=== PATIENT | female | born 1990 | race Two or more races ===

== ENCOUNTER 2017-08-11 01:06 | Emergency (ER) | payer OTHER ==
[~2017-08-11] VITALS: Ht 165.1 cm; Wt 102.1 kg
[2017-08-11] MEDS ORDERED: CARAFATE1 G1 ORAL (01:21)
[2017-08-11 01:25] VITALS: BP 130/92
[2017-08-11] MEDS ORDERED: Lidocaine 2% Visc 15ml soln ORAL ONE (01:45)
[2017-08-11] MEDS ORDERED: Mylanta II UD 30ml ORAL ONE (01:45)
[2017-08-11] MEDS ORDERED: CARAFATE1 GM/10 M1 ORAL (01:53)
--- NOTE | 2017-08-11 01:53 | Emergency Room Report ---
History of Present Illness General Chief Complaint: Abdominal Pain Source: Patient Present Illness HPI Is a 27-year-old female with a history of gastritis. She has multiple workup in the past. Ultrasound negative for gallbladder disease. Endoscopy showed that she has gastritis. Negative for H. pylori. She only taking Carafate for the pain. She said that helped. Also GI cocktail helped. She presents with epigastric pain. She forgot her medication in [place]. Onset today. Had vomiting earlier. No radiation. We'll for pain. Allergies: Coded Allergies: METHOCARBAMOL (Verified Adverse Reaction, Unknown, 08/11/17) increased heart rate Patient History Past Medical History: see triage record, old chart reviewed Past Surgical History: none Pertinent Family History: none Social History: Denies: smoking Last Menstrual Period: jul 25 Now: No Immunizations: other Reviewed Nursing Documentation: PMH: Agreed, PSxH: Agreed Nursing Documentation-PMH Hx Gastrointestinal Problems: Yes - gastritis Review of Systems Eye: Denies: eye pain, blurred vision ENT: Denies: ear pain, nose congestion, throat swelling Respiratory: Denies: cough, shortness of breath Cardiovascular: Denies: chest pain, palpitations Gastrointestinal: Reports: abdominal pain, Denies: diarrhea, nausea, vomiting Musculoskeletal: Denies: back pain, joint pain Skin: Denies: rash Neurological: Denies: headache, numbness Endocrine: Denies: increased thirst, increased urine Hematologic/Lymphatic: Denies: easy bruising All Other Systems: negative except mentioned in HPI Physical Exam Vital Signs Date Time Temp Pulse Resp B/P (MAP) Pulse Ox O2 Delivery O2 Flow Rate FiO2 08/11/17 01:15 98.2 86 16 130/92 98 Room Air vitals normal Sp02 EP Interpretation: reviewed, normal General Appearance: well appearing, no apparent distress, alert Head: normocephalic, atraumatic Eyes: bilateral eye PERRL, bilateral eye EOMI ENT: hearing grossly normal, normal pharynx Neck: full range of motion, supple, no meningismus Respiratory: chest non-tender, lungs clear, normal breath sounds Cardiovascular #1: regular rate, rhythm, no murmur Gastrointestinal: normal bowel sounds, no mass, no organomegaly, no bruit, non- distended, tenderness - Epigastric Musculoskeletal: back normal, gait/station normal, normal range of motion Psychiatric: mood/affect normal Skin: warm/dry Medical Decision Making Diagnostic Impression: Primary Impression: Gastritis Qualified Codes: K29.00 - Acute gastritis without bleeding ER Course She will gastritis. Said this is typical for her. Does not want any blood work or diagnostic study. Better after GI cocktail. We'll discharge him. Last Vital Signs Date Time Temp Pulse Resp B/P (MAP) Pulse Ox O2 Delivery O2 Flow Rate FiO2 08/11/17 01:25 98.2 72 16 130/92 98 Room Air Status: improved Disposition: HOME, SELF-CARE Condition: Stable Scripts Sucralfate (CARAFATE) 1 Gm/10 Ml Oral.susp 1 GM ORAL FOUR TIMES A DAY, #210 ML Prov: MUMTAZ MAYFIELD M.D. 08/11/17 Additional Instructions: Followup with your DrEverardo in 7 days. Return if symptom worsen. MUMTAZ MAYFIELD M.D. Aug 11, 2017 01:53
[2017-08-11 01:56] VITALS: BP 130/92
== END 2017-08-11 01:56 | disposition home or self-care (01) ==
LOC: EMR 01:42
DX: K29.70 Gastritis, unspecified, without bleeding (principal); R10.9 Unspecified abdominal pain
CPT/HCPCS: 99284

== ENCOUNTER 2018-07-26 00:04 | Emergency (ER) | payer SELFPAY ==
[~2018-07-26] VITALS: Ht 165.1 cm; Wt 108.9 kg
[~2018-07-26 00:04] MED LIST: CARAFATE1 G1 ORAL; CARAFATE1 GM/10 M1 ORAL
[2018-07-26] MEDS ORDERED: Morphine Sulfate 10mg/ml Inj IVP ONE (00:30)
--- NOTE | 2018-07-26 00:48 | Emergency Room Report ---
History of Present Illness General Chief Complaint: Abdominal Pain Source: Patient Present Illness HPI Is a 28-year-old female with a history of gallstones, diagnosed earlier this year in [place]. She presents with chief complaint of right upper quadrant pain is been on and off for the last week. Pain radiates to her back. Has nausea and vomiting. No fever chills. Vomiting with specks of blood now. She went to [facility] and had blood work done but waited for over 2 hours shows she left. Denies any other complaint. Similar symptom in the past. Worse with food. Allergies: Coded Allergies: METHOCARBAMOL (Verified Adverse Reaction, Unknown, 08/11/17) increased heart rate Patient History Past Medical History: see triage record, old chart reviewed Past Surgical History: other Pertinent Family History: none Social History: Denies: smoking Last Menstrual Period: 06/2018 Now: No Immunizations: other Reviewed Nursing Documentation: PMH: Agreed; PSxH: Agreed Nursing Documentation-PMH Hx Gastrointestinal Problems: Yes - GALLSTONE,GASTRITIS,HERNIATED DISC Review of Systems Eye: Denies: eye pain, blurred vision ENT: Denies: ear pain, nose congestion, throat swelling Respiratory: Denies: cough, shortness of breath Cardiovascular: Denies: chest pain, palpitations Gastrointestinal: Reports: abdominal pain, nausea, vomiting; Denies: diarrhea Musculoskeletal: Denies: back pain, joint pain Skin: Denies: rash Neurological: Denies: headache, numbness Endocrine: Denies: increased thirst, increased urine Hematologic/Lymphatic: Denies: easy bruising All Other Systems: negative except mentioned in HPI Physical Exam Vital Signs Date Time Temp Pulse Resp B/P (MAP) Pulse Ox O2 Delivery O2 Flow Rate FiO2 07/26/18 00:10 98.2 84 16 110/72 99 Room Air 98.2 vitals normal Sp02 EP Interpretation: reviewed, normal General Appearance: well appearing, no apparent distress, alert, obese Head: normocephalic, atraumatic Eyes: bilateral eye PERRL, bilateral eye EOMI ENT: hearing grossly normal, normal pharynx Neck: full range of motion, supple, no meningismus Respiratory: chest non-tender, lungs clear, normal breath sounds Cardiovascular #1: regular rate, rhythm, no murmur Gastrointestinal: normal bowel sounds, no mass, no organomegaly, no bruit, non- distended, tenderness - right upper quadrant Musculoskeletal: back normal, gait/station normal, normal range of motion Psychiatric: mood/affect normal Skin: warm/dry Medical Decision Making Diagnostic Impression: Primary Impression: Cholelithiasis Qualified Codes: K80.20 - Calculus of gallbladder without cholecystitis without obstruction Additional Impression: Biliary colic ER Course Patient with biliary colic. No evidence of any obstruction or cholecystitis. No evidence of pancreatitis. Pain is well-controlled now. We'll discharge home. Lab Results Impression labs normal Last Vital Signs Date Time Temp Pulse Resp B/P (MAP) Pulse Ox O2 Delivery O2 Flow Rate FiO2 07/26/18 00:10 98.2 84 16 110/72 99 Room Air 98.2 Status: improved Disposition: HOME, SELF-CARE Condition: Stable Scripts Hydrocodone/Acetaminophen 5-325* (HYDROCODONE/ACETAMINOPHEN 5-325*) 1 Each Tablet 1 TAB ORAL Q6H PRN for For Pain, #20 TAB 0 Refills Prov: Russell Ghosh MD 07/26/18 Additional Instructions: Follow-up with your doctor in 7 days. You may need a referral to see a surgeon for possible gallbladder surgery. Return if symptom worsen. Russell Ghosh MD Jul 26, 2018 00:48
[2018-07-26 01:00] LABS: EOSINOPHILS % (AUTO) 1.5 % (0.0-3.0); HEMATOCRIT 41.7 % (37.0-47.0); HEMOGLOBIN 14.1 G/DL (12.0-16.0); LYMPHOCYTES % (AUTO) 37.4 % (20.0-45.0); MEAN CORPUSCULAR VOLUME 87 FL (80-99); MONOCYTES % (AUTO) 5.7 % (1.0-10.0); NEUTROPHILS % (AUTO) 54.4 % (45.0-75.0); PLATELET COUNT 364 K/UL (150-450); RED BLOOD COUNT 4.78 M/UL (4.20-5.40); RED CELL DISTRIBUTION WIDTH 12.8 % (11.6-14.8); WHITE BLOOD COUNT 9.1 K/UL (4.8-10.8)
[2018-07-26 01:05] LABS: APPEARANCE,URINE CLEAR; BILIRUBIN, URINE NEGATIVE (NEGATIVE); COLOR,URINE PALE YELLOW; GLUCOSE, URINE (UA) NEGATIVE (NEGATIVE); KETONES,URINE NEGATIVE (NEGATIVE); LEUKOCYTE ESTERASE ,URINE 1+ (NEGATIVE); NITRITE,URINE NEGATIVE (NEGATIVE); PH,URINE 5 (4.5-8.0); PROTEIN,URINE NEGATIVE (NEGATIVE); UROBILINOGEN,URINE NORMAL MG/DL (0.0-1.0)
[2018-07-26 01:08] VITALS: BP 130/80
[2018-07-26 01:18] LABS: ANION GAP 9 mmol/L (5-15); BLOOD UREA NITROGEN 10 mg/dL (7-18); CALCIUM 8.9 MG/DL (8.5-10.1); CARBON DIOXIDE 26 MMOL/L (21-32); CHLORIDE 106 MMOL/L (98-107); CREATININE 0.9 MG/DL (0.55-1.30); POTASSIUM 3.8 MMOL/L (3.5-5.1); SODIUM 141 MMOL/L (136-145)
[2018-07-26 01:22] LABS: ALANINE AMINOTRANSFERASE 58 U/L (12-78); ALBUMIN 3.7 G/DL (3.4-5.0); ALKALINE PHOSPHATASE 110 U/L (46-116); ASPARTATE AMINO TRANSFERASE 38 U/L (15-37); BILIRUBIN,TOTAL 0.2 MG/DL (0.2-1.0)
[2018-07-26] MEDS ORDERED: HYDROCODON-ACE1 EA15 ORAL (02:14)
[2018-07-26 02:31] VITALS: BP 130/80
== END 2018-07-26 02:26 | disposition home or self-care (01) ==
LOC: EMR 00:25
DX: K80.20 Calculus of gallbladder without cholecystitis without obstruction (principal)
CPT/HCPCS: 36415; 80053; 81003; 81025; 83690; 85025; 96374; 96375; 99284; J2270; J2405

== ENCOUNTER 2018-10-09 19:16 | Emergency (ER) | payer MEDICAID ==
[~2018-10-09] VITALS: Ht 165.1 cm; Wt 99.8 kg
[~2018-10-09 19:16] MED LIST changes: +HYDROCODON-ACE1 EA15 ORAL
[2018-10-09] MEDS ORDERED: NKM (19:29)
[2018-10-09 19:39] VITALS: BP 111/66
[2018-10-09 19:50] VITALS: BP 100/70
--- NOTE | 2018-10-09 22:34 | Emergency Room Report ---
History of Present Illness General Chief Complaint: Abdominal Pain Source: Patient Present Illness HPI 28-year-old female with history of cholelithiasis and having emergency cholecystectomy July 2018 in [place] here complaining of right-sided pain in her abdomen as well as nausea, vomiting, diarrhea eversince surgery. Patient' s last visit with surgeon was a week after the surgery while she was still having these symptoms and surgeon told her that she needs to follow-up with a track sweeper. She reports that she then went to another emergency room and had MRI of her abdomen done which was unremarkable. Patient reports she can hold fluids however is having a hard time keeping in solid food. denies blood in stool, denies blood in vomit, only had one episode of streaks of blood in vomit. denies fever/chills, claims she only takes ibuprofen for pain, and has been taking Zofran for nausea without improvement. She is in no apparent distress and is requesting another MRI to be done. Patient denies any urinary symptoms. There is reports she also has chronic gastritis. denies acid reflux.denies chest pain, shortness of breath, palpitation, dizziness, headache Allergies: Coded Allergies: METHOCARBAMOL (Verified Adverse Reaction, Unknown, 08/11/17) increased heart rate Patient History Past Medical History: see triage record Past Surgical History: aileen Last Menstrual Period: 09/28/2018 Now: No : 1 Para: 1 Immunizations: UTD Reviewed Nursing Documentation: PMH: Agreed; PSxH: Agreed Nursing Documentation-PMH Past Medical History: No History, Except For Hx Gastrointestinal Problems: Yes - GALLSTONE,GASTRITIS,HERNIATED DISC Review of Systems All Other Systems: negative except mentioned in HPI Physical Exam Vital Signs Date Time Temp Pulse Resp B/P (MAP) Pulse Ox O2 Delivery O2 Flow Rate FiO2 10/09/18 19:25 98.2 104 16 111/66 97 Room Air Sp02 EP Interpretation: reviewed, normal General Appearance: normal inspection, well appearing, no apparent distress, alert, GCS 15 Head: normocephalic Eyes: bilateral eye normal inspection, bilateral eye PERRL ENT: normal ENT inspection, normal pharynx Neck: normal inspection, full range of motion, supple Respiratory: normal inspection, chest non-tender, lungs clear, normal breath sounds, no rhonchi, no respiratory distress Cardiovascular #1: normal inspection, no gallop, no murmur Gastrointestinal: normal inspection, normal bowel sounds, non tender, soft, other - surgical site noninfected Rectal: deferred Genitourinary: no CVA tenderness Neurologic: normal inspection, alert, oriented x3, responsive Psychiatric: normal inspection, judgement/insight normal Skin: normal inspection, normal color, no rash, warm/dry Lymphatic: normal inspection, no adenopathy Medical Decision Making PA Attestation all diagnoses and treatment plans were reviewed and discussed with supervising physician Dr. Sánchez Diagnostic Impression: Primary Impression: Abdominal pain Additional Impression: Post-operative complication ER Course 28-year-old female with history of cholelithiasis and having emergency cholecystectomy July 2018 in [place] here complaining of right-sided pain in her abdomen as well as nausea, vomiting, diarrhea eversince surgery. Patient' s last visit with surgeon was a week after the surgery while she was still having these symptoms and surgeon told her that she needs to follow-up with a track sweeper. She reports that she then went to another emergency room and had MRI of her abdomen done which was unremarkable. Patient reports she can hold fluids however is having a hard time keeping in solid food. denies blood in stool, denies blood in vomit, only had one episode of streaks of blood in vomit. denies fever/chills, claims she only takes ibuprofen for pain, and has been taking Zofran for nausea without improvement. She is in no apparent distress and is requesting another MRI to be done. Patient denies any urinary symptoms. There is reports she also has chronic gastritis. denies acid reflux.denies chest pain, shortness of breath, palpitation, dizziness, headache Ddx considered but are not limited to post op adhesion, gallstone pancreatitis, gastritis, Vital signs: are WNL, pt. is afebrile H&PE are most consistent withpost op complications ORDERS: none required at this time, the diagnosis is clinical ED INTERVENTIONS: None required at this time. DISCHARGE: At this time pt. is stable for d/c to home. Will provide printed patient care instructions, and any necessary prescriptions. Care plan and follow up instructions have been discussed with the patient prior to discharge. Abdominal CT noncontrast CBC, ENT, UA, urine , and leg. However patient walked out without signing AMA after being seen by me she reports to the nurse that she will come back later as she needs an MRI Last Vital Signs Date Time Temp Pulse Resp B/P (MAP) Pulse Ox O2 Delivery O2 Flow Rate FiO2 10/09/18 19:39 98.2 68 16 111/66 97 Room Air Disposition: AGAINST MEDICAL ADVICE Condition: Stable Referrals: [facility],REFERRING (PCP) Patient Instructions: Abdominal Pain, Adult KathielimogSabrina carreon Oct 09, 2018 22:34
== END 2018-10-09 19:50 | disposition left against medical advice (07) ==
LOC: EMR 19:45
DX: G89.18 Other acute postprocedural pain (principal); R10.9 Unspecified abdominal pain; Z90.49 Acquired absence of other specified parts of digestive tract
CPT/HCPCS: 99284